=== PATIENT | female | born 1985 | race Caucasian/White ===

== ENCOUNTER 2024-12-11 19:26 | Emergency (ER) | payer SELFPAY ==
[2024-12-11 19:37] VITALS: BP 158/98; PULSE 140
[2024-12-11] MEDS ORDERED: Sodium Chloride 0.9% 10 ML Syringe FLUSH PRN (19:46)
[2024-12-11 19:56] LABS: BASOPHILS PERCENT AUTO 0.1 % (0.0-1.0); EOSINOPHILS PERCENT AUTO 0.1 % (1.0-3.0); HEMATOCRIT 40.8 % (37.0-47.0); HEMOGLOBIN 13.8 g/dL (12.0-16.0); LYMPHOCYTES PERCENT AUTO 9.1 % (20.5-50.1); MEAN CORPUSCULAR HEMOGLOBIN 32.2 pg (27.0-34.0); MEAN CORPUSCULAR HGB CONC 33.8 g/dL (33.0-35.0); MEAN CORPUSCULAR VOLUME 95.3 fL (80-100); MONOCYTES PERCENT AUTO 3.2 % (2-8); NEUTROPHILS PERCENT AUTO 87.5 % (42.2-75.2); PLATELET COUNT,PLT 165 10^3/uL (150-450); RED BLOOD CELL COUNT 4.28 10^6/uL (4.2-5.4); WHITE BLOOD CELL COUNT,WBC 13.4 10^3/uL (5.0-10.0)
[2024-12-11] MEDS: cefTRIAXone 2 GM Vial IVPUSH ONE (20:04)
[2024-12-11 20:16] LABS: A/G RATIO 0.76; ALBUMIN 3.2 g/dL (3.4-5.0); ANION GAP 14.8 mEq/L (7-13); BILIRUBIN TOTAL 0.5 mg/dL (0.2-1.0); BUN/CREATININE RATIO 5.8 (No establ ref range); C-REACTIVE PROTEIN 18.8 ng/dL (<=0.50); CALCIUM 8.9 mg/dL (8.5-10.1); CREATININE 1.04 mg/dL (0.55-1.02); EST CRCL DRUG DOSING (CG) 63.33 mL/min; POTASSIUM,K 3.8 mmol/L (3.5-5.1); PROTEIN TOTAL,TP 7.4 g/dL (6.4-8.2)
== END 2024-12-11 20:30 | disposition home or self-care (01) ==
LOC: DL.ED 19:26
DX: L03.115 Cellulitis of right lower limb (principal); F17.210 Nicotine dependence, cigarettes, uncomplicated; Z79.899 Other long term (current) drug therapy
CPT/HCPCS: 36415; 80053; 85025; 86140; 96374; 99283; 99284; J0696

== ENCOUNTER 2024-12-13 05:41 | Emergency (ER) | payer SELFPAY ==
[2024-12-13 06:30] VITALS: BP 143/86; PULSE 99
[2024-12-13] MEDS: Clindamycin in 0.9 % Sod Chlor 900 MG in Premix Bag 1 BAG IV ONE (06:34)
[2024-12-13] MEDS: Ketorolac 30 MG/ML SDV IVPUSH ONE (06:34)
[2024-12-13 06:38] LABS: BASOPHILS PERCENT AUTO 0.1 % (0.0-1.0); EOSINOPHILS PERCENT AUTO 0.5 % (1.0-3.0); HEMATOCRIT 40.5 % (37.0-47.0); HEMOGLOBIN 13.7 g/dL (12.0-16.0); LYMPHOCYTES PERCENT AUTO 4.8 % (20.5-50.1); MEAN CORPUSCULAR HEMOGLOBIN 32.1 pg (27.0-34.0); MEAN CORPUSCULAR HGB CONC 33.8 g/dL (33.0-35.0); MEAN CORPUSCULAR VOLUME 94.8 fL (80-100); MONOCYTES PERCENT AUTO 3.9 % (2-8); NEUTROPHILS PERCENT AUTO 90.7 % (42.2-75.2); PLATELET COUNT,PLT 185 10^3/uL (150-450); RED BLOOD CELL COUNT 4.27 10^6/uL (4.2-5.4); WHITE BLOOD CELL COUNT,WBC 15.5 10^3/uL (5.0-10.0)
[2024-12-13 07:09] LABS: ALBUMIN 2.8 g/dL (3.4-5.0); ANION GAP 14.3 mEq/L (7-13); BUN/CREATININE RATIO 7.8 (No establ ref range); CALCIUM 8.9 mg/dL (8.5-10.1); CREATININE 0.9 mg/dL (0.55-1.02); EST CRCL DRUG DOSING (CG) 73.19 mL/min; POTASSIUM,K 3.3 mmol/L (3.5-5.1); PROTEIN TOTAL,TP 7.5 g/dL (6.4-8.2)
[2024-12-13 07:11] LABS: A/G RATIO 0.6
== END 2024-12-13 07:22 | disposition home or self-care (01) ==
LOC: DL.ED 05:41
DX: L03.115 Cellulitis of right lower limb (principal)
CPT/HCPCS: 36415; 71045; 80053; 83605; 85025; 87040; 96365; 96375; 99283-25; 99284; J0737; J1885